=== PATIENT | female | born 1990 | race Hispanic/Latino ===

== ENCOUNTER 2023-02-09 06:32 | Day surgery (SDC) | payer BC, SELFPAY ==
[2023-02-09] MEDS ORDERED: Ringers Lactate 1,000 ML IV ONE (07:20)
[2023-02-09] MEDS ORDERED: LIDOCAINE 1% MPF 5 ML VIAL ONE (07:47)
[2023-02-09] MEDS ORDERED: ONDANSETRON 4 MG/2 ML VIAL ONE (07:47)
[2023-02-09] MEDS ORDERED: propofoL 200 MG/20 ML VIAL IV ONE ×2 (07:47→08:38)
[2023-02-09 08:01] LABS: Urine Specific Gravity/Preg 1.025 (1.005-1.030)
[2023-02-09] MEDS ORDERED: PROMETHAZINE INJ 25 MG/ML AMP ONE (08:51)
[2023-02-09] MEDS: MEPERIDINE HCL 25 MG/ML SYR ONE ×2 (09:02→09:55)
--- NOTE | 2023-02-09 13:22 | RAD REPORT ---
EXAM DESCRIPTION: RAD - Small Bowel Series - 02/09/2023 12:49 pm CLINICAL HISTORY: S/P COLONOSCOPY Abdominal pain COMPARISON: No comparisons FINDINGS: Clinical Application Consultant film shows a nonspecific bowel gas pattern. No obstruction or free air. No suspiciou s calcifications. Surgical clips in the right upper quadrant . Gastric size and mucosal fold pattern are normal. No delay in transit of contrast into the small mack l. Small bowel is normal in diameter with no mucosal fold thickening. No intrinsic or extrinsic mass identifiable. Terminal ileum has normal appearance. Transit time to the colon is normal. No fluoroscopy was performed. Total images acquired: 17 IMPRESSION: Normal small bowel series.
== END 2023-02-09 10:04 | disposition home or self-care (01) ==
LOC: OR 06:32
PROVIDERS: ATTEND Internal Medicine Gastroenterology
PROC: 0DBP8ZX Excision of Rectum, Via Natural or Artificial Opening Endoscopic, Diagnostic (ICD-10-PCS; 2023-02-09)
PROC: 0DBF8ZX Excision of Right Large Intestine, Via Natural or Artificial Opening Endoscopic, Diagnostic (ICD-10-PCS; 2023-02-09)
PROC: 0DBG8ZX Excision of Left Large Intestine, Via Natural or Artificial Opening Endoscopic, Diagnostic (ICD-10-PCS; principal; 2023-02-09 07:30)
DX: K92.1 Melena (principal); R19.7 Diarrhea, unspecified; R15.1 Fecal smearing; K59.00 Constipation, unspecified
CPT/HCPCS: 81025; 88305; 74250; 45380; J2550; J2704 ×2; J2001; J2175; J2405; J7120